=== PATIENT | female | born 1955 | race Two or more races ===

== ENCOUNTER 2018-01-20 10:42 | Emergency (ER) | payer OTHER ==
[~2018-01-20] VITALS: Ht 157.5 cm; Wt 95.4 kg
[~2018-01-20 10:42] MED LIST: B COMPLETE1 EACH PO; NOHOMEMEDS; VENLAFAXINE HC150 M1 PO; [UNRECOGNIZED DRUG - OTHER] PO
[2018-01-20 11:19] LABS: HEMATOCRIT 35.1 % (36.0-46.0); MCH 30.7 PG (29.0-34.0); MCHC 34.2 G/DL (30.0-36.0); MCV 89.8 FL (83-99); RBC DIS.WIDTH-CV 12.4 % (11.8-14.6); RBC DIS.WIDTH-SD 40.3 % (39-53); RED BLOOD COUNT 3.91 M/uL (3.80-5.20); WHITE BLOOD COUNT 5.2 K/uL (4.1-10.2)
[2018-01-20 11:52] LABS: TROP-I INTERPRETATION NEGATIVE; TROPONIN-I < 0.01 ng/mL (0.0-0.30)
[2018-01-20 12:01] LABS: PLAT.SUFFICIENCY ADEQUATE; PLATELET COUNT 161 K/uL (156-360)
[2018-01-20 12:11] LABS: CHLORIDE 106 MEQ/L (99-109); CREATININE 0.7 MG/DL (0.6-1.3); GFR ESTIMATE (CALCULATED) > 59 mL/min/; GLUCOSE 96 mg/dL (70-99); POTASSIUM 3.7 MEQ/L (3.7-5.4); SODIUM 138 MEQ/L (136-147); UREA NITROGEN (BUN) 17 mg/dL (9-23)
[2018-01-20 14:42] LABS: TROP-I INTERPRETATION NEGATIVE; TROPONIN-I < 0.01 ng/mL (0.0-0.30)
[2018-01-20] MEDS ORDERED: ZANTAC150 MG PO (14:44)
[2018-01-20 14:54] VITALS: BP 148/86
== END 2018-01-20 14:55 | disposition home or self-care (01) ==
LOC: EME 10:42
PROVIDERS: Physician Assistant
DX: R07.9 Chest pain, unspecified (principal); Z87.891 Personal history of nicotine dependence
CPT/HCPCS: 71046; 80048; 84484; 85027; 93005; 99281; 99284